=== PATIENT | male | born 1960 | race Caucasian/White ===

== ENCOUNTER 2019-01-21 14:25 | Emergency (ER) | payer MEDICAID, OTHER ==
[~2019-01-21] VITALS: Ht 172.7 cm; Wt 68.9 kg
[2019-01-21] MEDS ORDERED: TAMS-3 PO (14:40)
[2019-01-21] MEDS ORDERED: ATOR40TA PO (14:40)
[2019-01-21] MEDS ORDERED: LISI2.5T2 PO (14:40)
[2019-01-21 14:57] LABS: *BILIRUBIN,URIN NEGATIVE (NEGATIVE); *BLOOD, URINE 2+ (NEGATIVE); *COLOR,URINE YELLOW (YELLOW); *KETONES,URINE 1+ (NEGATIVE); *UROBILINOGEN,URINE 0.2 E.U./dl (NORMAL); LEUKOCYTE ESTERASE ,URINE NEGATIVE (NEGATIVE); NITRITE, URINE NEGATIVE (NEGATIVE); PH,URINE 5.5 (5.0-8.0); UGLUCOSE NEGATIVE (NEGATIVE)
[2019-01-21] MEDS ORDERED: HYDROCODONE/APAP 10-325 MG TABLET PO ONE (15:00)
[2019-01-21] MEDS ORDERED: IV NORMAL SALINE 500 ML BAG IV ONE (15:00)
[2019-01-21] MEDS ORDERED: HYDROCODONE/APAP 10-325 MG TABLET ONE (15:01)
[2019-01-21 15:04] LABS: BASOPHILS # (AUTO) 0.1 K/uL (0.0-8.0); BASOPHILS % (AUTO) 0.7 % (0.0-2.0); EOSINOPHILS # (AUTO) 0.2 K/uL (0.0-0.7); EOSINOPHILS % (AUTO) 2.9 % (0.0-7.0); HEMATOCRIT 41.8 % (36.7-47.1); HEMOGLOBIN 13.8 g/dL (12.5-16.3); LYMPHOCYTES # (AUTO) 2.4 K/uL (20.0-40.0); MEAN CORPUSCULAR HEMOGLOBIN 29.1 uug (23.8-33.4); MEAN CORPUSCULAR HGB CONC 33 g/dL (32.5-36.3); MEAN CORPUSCULAR VOLUME 88.1 fL (73.0-96.2); MONOCYTES # (AUTO) 0.5 K/uL (2.0-10.0); MONOCYTES % (AUTO) 6.4 % (0.0-11.0); NEUTROPHILS # (AUTO) 5.3 K/uL (1.8-8.9); PLATELET COUNT (AUTO) 269 K/uL (152-348); RED BLOOD CELL COUNT(AUTO) 4.75 MIL/uL (4.06-5.63); WHITE BLOOD COUNT (AUTO) 8.5 K/uL (3.6-10.2)
[2019-01-21 15:08] LABS: *CLARITY,URINE SLIGHTLY HAZY (CLEAR)
[2019-01-21 15:10] LABS: MUCUS,URINE MANY /LPF (0-FEW); RBC,URINE 20-50 /HPF (0-3)
[2019-01-21 15:12] LABS: CREATININE 0.8 mg/dL (0.6-1.3); POTASSIUM 3.9 mmol/L (3.5-5.1)
[2019-01-21] MEDS ORDERED: KETOROLAC TROMETHAMINE 30 MG INJ IVP ONE (15:30)
[2019-01-21] MEDS ORDERED: TAMSULOSIN HCL 0.4 MG CAP.SR.24H PO ONE (15:30)
[2019-01-21] MEDS ORDERED: KETOROLAC TROMETHAMINE 30 MG INJ ONE (15:34)
[2019-01-21] MEDS ORDERED: TAMSULOSIN HCL 0.4 MG CAP.SR.24H ONE (15:34)
[2019-01-21 15:47] VITALS: BP 115/68
== END 2019-01-21 16:51 | disposition home or self-care (01) ==
LOC: ER 14:25
DX: N20.0 Calculus of kidney (principal); I25.2 Old myocardial infarction; E78.5 Hyperlipidemia, unspecified; Z79.899 Other long term (current) drug therapy
CPT/HCPCS: 36415; 76775; 80048; 81001; 85025; 96374; 99284; J1885; A4663; J7030; J7040